=== PATIENT | male | born 1960 | race Caucasian/White ===

== ENCOUNTER → 2017-12-01 11:36 | Outpatient (CLI) | payer BC ==
[~2017-12-01] VITALS: Ht 188 cm; Wt 105.9 kg
--- NOTE | ~2017-12-01 | HEMODYNAMI ---
PATIENT:ANTONINA MARQUEZ MEDICAL RECORD: [id number] : 58 LOCATION:[facility] ADMISSION DATE: 12/01/17 Generatedon:12/01/201715:31 Patient name: ANTONINA MARQUEZ Patient #: [id number] S SN: [id number] : 1960 Date of study: 12/01/2017 Page: Of Hemodynamic Procedure Report Patient Data Patient Demographics Procedure consent was obtained First Name: ANTONINA Gender: Male Last Name: JIMMY : 1960 Middle Initial: S Age: 57 year(s) Patient #: [id number] Race: SSN: [id number] Additional ID: [id number] Contact details Address: [address] [place] [address] State: [place]: [facility] [place] code: [address] Admission Admission Data Admission Date: 12/01/2017 Admission Time: 11:36 Arrival Date: 12/01/2017 Arrival Time: 13:30 Admit Source: Other Insurance Payor: Private health insurance Height (in.): 74 BSA: 2.33 (m2) Height (cm.): 187.96 BMI: 30.3 (kg/m2) Weight (lbs.): 236 Weight (kg.): 107.05 Lab Results Lab Result Date: 12/01/2017 Lab Result Time: 0:00 Biochemistry Name Units Result Min Max BUN mg/dl 13 --(--*-)-- 7 18 Creatinine mg/dl 1 --(--*-)-- 0.6 1.3 CBC Name Units Result Min Max Hemoglobin g/dl 17.4 --(---*)-- 13.5 17.5 Procedure Procedure Types Cath Procedure Diagnostic Procedure [facility] w/Coronaries Sedation Charges Moderate Sedation up to 30 minutes Procedure Description Procedure Date Procedure Date: 12/01/2017 Procedure Start Time: 14:55 Procedure End Time: 15:25 Procedure Staff Name Function Pop Gannon MD Performing Physician Yolie JOHNSON Monitor Luisa Nielsen RT Scrub Daniel Travis RN Nurse Procedure Data Cath Procedure Fluoroscopy Diagnostic fluoroscopy Total fluoroscopy Time: 5.9 time: 5.9 min min Diagnostic fluoroscopy Total fluoroscopy dose: dose: 1004 mGy 1004 mGy Contrast Material Contrast Material Type Amount (ml) Isovue 300 72 Entry Location Entry Primary Successful Side Size Upsize Upsize Entry Closure Cuevas ccessful Closure Location (Fr) 1 (Fr) 2 (Fr) Remarks Device Remarks Radial Right 6 Fr Mechanical artery Short Compression Femoral Right 6 Fr Exoseal artery Short Estimated blood loss: 5 ml Diagnostic catheters Device Type Used For End Catheter Placement DIAGNOSTIC Adi 110cm Multi-vessel 5Fr catheter ([id number]) Angiography DIAGNOSTIC AR 1 MOD 5Fr Right Coronary catheter ([id number]) Angiography DIAGNOSTIC [place] 110cm 5 Left Coronary Fr catheter (117613) Angiography DIAGNOSTIC JL 4.0 5Fr Left Coronary catheter ([id number]) Angiography Procedure Complications No complications Procedure Medications Medication Administration Route Dosage Oxygen NC 2 l/min Heparin Flush Bag added to field 2 bags (1000units/500ml NS) 0.9% NaCl I.V. ml/hr Radial Cocktail added to field 1 syringe (Verapomil 2mg/Nitro 400mcg/Heparin 1500units) Fentanyl I.V. 50 mcg Versed I.V. 1 mg Fentanyl I.V. 50 mcg Versed I.V. 1 mg Fentanyl I.V. 50 mcg Radial Cocktail I.A. 1 syringe (Verapomil 2mg/Nitro 400mcg/Heparin 1500units) Fentanyl I.V. 50 mcg Fentanyl I.V. 50 mcg Hemodynamics Rest BSA: 2.33 (m2) HGB: 17.4 (g/dl) O2 Consumption: Estimated: 261.37 (ml/min) O2 Co nsumption indexed: Estimated:112.18 (ml/min/m) Heart Rate: 55 (bpm) Pressure Samples Time Site Value (mmHg) Purpose Heart Use Rate(bpm) 15:04 LV 137/-9,16 Snapshot 68 15:04 AO 122/73(96) Pullback 68 15:04 LV 142/4,19 Pullback 68 Gradients Valve Time Site 1 Site 2 Mean SEP/DFP Peak To Heart Use (mmHg) (sec/min) Peak Rate (mmHg) (bpm) Aortic 15:04 LV AO 26 6 20 68 142/4,19 122/73(96) Calculations Valve P-P Mean Valve Index Valve Source Name Gradient Area Flow (cm2) Aortic 20 26 20 26 Snapshots Pre Cath Intra NCS Post Cath Vital Signs Time Heart Resp SPO2 etCO2 NIBP (mmHg) Rhythm Pain Sedation Rate (ipm) (%) (mmHg) Status Level (bpm) 14:43:38 54 17 96 0 125/68(91) NSR 0 (11) 10(A) , No pain 14:47:46 55 16 96 0 111/71(85) NSR 0 (11) 10(A) , No pain 14:51:56 60 17 95 0 121/72(101) NSR 0 (11) 10(A) , No pain 14:56:08 60 17 94 21.3 115/65(83) NSR 0 (11) 9(A) , No pain 15:01:11 64 15 96 30.8 119/74(87) NSR 0 (11) 9(A) , No pain 15:06:02 63 16 93 0 116/62(82) NSR 0 (11) 9(A) , No pain 15:10:14 66 16 93 0 122/71(95) NSR 0 (11) 9(A) , No pain 15:15:07 59 16 93 0 119/64(92) NSR 0 (11) 9(A) , No pain 15:19:21 65 16 93 0 115/71(95) NSR 0 (11) 9(A) , No pain 15:24:18 66 17 94 0 120/82(101) NSR 0 (11) 9(A) , No pain Medications Time Medication Route Dose Verified Delivered Reason Notes Effectiveness by by 14:42:48 Oxygen NC 2 l/min Pop Travis RN physician 14:43:00 Heparin Flush added 2 bags Pop Sanchez used for Bag to Jagdeep Tarvis RN procedure (1000units/500ml field NS) 14:43:11 0.9% NaCl I.V. ml/hr Pop Travis RN physician 14:43:22 Radial Cocktail added 1 Pop Daniel used for (Verapomil to syringe Jagdeep Travis glass glazier 2mg/Nitro field 400mcg/Heparin 1500units) 14:51:59 Fentanyl I.V. 50 mcg Pop Daniel for sedation Jagdeep Travis RN 14:52:06 Versed I.V. 1 mg Pop Daniel for sedation Jagdeep Travis RN 14:56:14 Fentanyl I.V. 50 mcg Pop Daniel for sedation Jagdeep Travis RN 14:56:16 Versed I.V. 1 mg Pop Daniel for sedation Jagdeep Travis RN 14:59:41 Fentanyl I.V. 50 mcg Pop Daniel for sedation Jagdeep Travis RN 15:01:36 Radial Cocktail I.A. 1 Pop Pop for (Verapomil syringe Jagdeep Gannon MD vasodilation 2mg/Nitro 400mcg/Heparin 1500units) 15:04:30 Fentanyl I.V. 50 mcg Pop Daniel for sedation Jagdeep Travis RN 15:18:26 Fentanyl I.V. 50 mcg Pop Pop for sedation Jagdeep Gannon MD Procedure Log Time Note 14:28:19 Informed consent obtained and on chart 14:28:40 Luisa Nielsen RT(R) sent for patient. Start room use. 14:28:41 Time tracking: Regular hours 14:28:46 Plan of Care:Hemodynamics will remain stable., Cardiac rhythm will remain stable., Comfort level will be maintained., Respiratory function will remain adequate., Patient/ family verbilizes understanding of procedure., Procedure tolerated without complication., Recovers from procedure without complications.. 14:30:07 Patient Height : 74 inches 14:30:13 Patient Weight : 236 lbs 14:30:13 Admit Source: Other 14:30:22 Arrival Date: 12/01/2017 1:30:00 PM 14:30:32 Insurance Payor : Private health insurance 14:42:32 Vital chart was started 14:42:48 Oxygen 2 l/min NC was administered by Daniel Travis RN; Per physician; 14:43:00 Heparin Flush Bag (1000units/500ml NS) 2 bags added to field was administered by Daniel Travis RN; used for procedure; 14:43:11 0.9% NaCl ml/hr I.V. was administered by Daniel Travis RN; Per physician; 14:43:22 Radial Cocktail (Verapomil 2mg/Nitro 400mcg/Heparin 1500units) 1 syringe added to field was administered by Daniel Travis RN; used for procedure; 14:47:17 Patient received from Pre/Post Procedure Room to CCL 2 Alert and oriented. Tansferred to table in Supine position. 14:47:18 Warm blankets applied, and tima hugger turned on for patient comfort. 14:47:18 Correct patient and procedure confirmed by team. 14:47:19 ECG and BP/O2 sat monitors applied to patient. 14:47:24 Baseline sample Acquired. 14:47:30 Rhythm: sinus rhythm 14:47:32 Full Disclosure recording started 14:47:37 H&P Date Dictated: 12/01/2017 Within 30 days and on chart., H&P Addendum completed by physician on day of procedure. (MUST COMPLETE FOR ALL OUTPATIENTS). 14:47:38 Pre-procedure instructions explained to patient. 14:47:38 Pre-op teaching completed and patient verbalized understanding. 14:47:40 Family in waiting room. 14:47:41 Patient NPO since Midnight. 14:47:44 Is the patient allergic to Iodine/contrast media? No. 14:47:45 Was the patient premedicated? No 14:47:48 Is patient on blood thinner?No 14:47:49 Patient diabetic? No. 14:47:51 Previous problem with sedation/anesthesia? No ? 14:47:53 Snore? No 14:47:54 Sleep apnea? No 14:47:55 Deviated septum? No 14:47:56 Opens mouth fully? Yes 14:47:57 Sticks out tongue? Yes 14:48:00 Airway obstruction? No ? 14:48:03 Dentures? No ? 14:48:28 Pre procedure: right dorsailis pedis pulse 2+ Normal; easily identifiable; not easily obliterated 14:48:31 Pre procedure: left dorsailis pedis pulse 2+ Normal; easily identifiable; not easily obliterated 14:48:33 Patient pain scale 0/10 ?. 14:48:43 IV patent on arrival in left forearm with 0.9% NaCl at [facility]. 14:48:45 Lab results completed and on chart. 14:48:50 Right Radial & Right Groin area was prepped with chlora-prep and draped in sterile fashion 14:48:50 Alarms reviewed by R. N. 14:48:51 Sharps counted by scrub and verified by R.N. 14:49:57 Lab Result : Hemoglobin 17.4 g/dl 14:49:57 Lab Result : Creatinine 1 mg/dl 14:49:57 Lab Result : BUN 13 mg/dl 14:51:23 Physician arrived 14:51:23 --------ALL STOP TIME OUT------ 14:51:25 Final Timeout: patient, procedure, and site verified with staff and physician. All members of the team are in agreement. 14:51:27 Right Radial & Right Groin site verified by team. 14:51:30 Physical assessment completed. ASA score P 2 - A patient with mild systemic disease as per Pop Gannon MD. 14:51:34 Sedation plan: IV Moderate Sedation Medication:Versed, Fentanyl 14:51:37 Use device set Radial Dx or PCI 14:51:38 ACIST Syringe (23004) opened to sterile field. 14:51:39 Medline Cath Pack ([id number]) opened to sterile field. 14:51:39 Bag Decanter (2002S) opened to sterile field. 14:51:40 DIAGNOSTIC WIRE .035 260cm J wire (405122) opened to sterile field. 14:51:41 ACIST Hand Control (10170) opened to sterile field. 14:51:41 ACIST Manifold (92968) opened to sterile field. 14:51:42 Tegaderm 4 x 4 (1626W) opened to sterile field. 14:51:43 MBrace Wrist Support (500978057) opened to sterile field. 14:51:59 Fentanyl 50 mcg I.V. was administered by Daniel Travis RN; for sedation; 14:52:06 Versed 1 mg I.V. was administered by Daniel Travis RN; for sedation; 14:52:06 NEEDLE Cook 21G 4cm Radial (C25155) opened to sterile field. 14:55:43 Procedure started. 14:55:46 Local anesthetic to right radial artery with Lidocaine 2% by Pop Gannon MD.INITIAL ACCESS ONLY 14:56:14 Fentanyl 50 mcg I.V. was administered by Daniel Travis RN; for sedation; 14:56:16 Versed 1 mg I.V. was administered by Daniel Travis RN; for sedation; 14:56:21 SHEATH 6Fr Prelude Radial ([id number]) opened to sterile field. 14:59:41 Fentanyl 50 mcg I.V. was administered by Daniel Travis RN; for sedation; 15:01:23 A 6 Fr Short sheath was inserted into the Right Radial artery 15:01:36 Radial Cocktail (Verapomil 2mg/Nitro 400mcg/Heparin 1500units) 1 syringe I.A. was administered by Pop Gannon MD; for vasodilation; 15:03:05 A DIAGNOSTIC Adi 110cm 5Fr catheter (759062) was advanced over the wire and used for Multi-vessel Angiography. 15:04:21 LV hemodynamics recorded. 15:04:22 LV gram done using ALMEIDA 15:04:29 Injector settings: Ml/sec: 5, Volume: 15, 15:04:30 Fentanyl 50 mcg I.V. was administered by Daniel Travis RN; for sedation; 15:04:37 EF : 50 % 15:06:03 Catheter removed. 15:06:53 A DIAGNOSTIC AR 1 MOD 5Fr catheter (233553S) was advanced over the wire and used for Right Coronary Angiography. 15:07:44 RCA angiography performed. 15:07:48 Injector settings: Ml/sec: 3, Volume: 69, 15:08:23 Catheter removed. 15:09:06 A DIAGNOSTIC [place] 110cm 5 Fr catheter (657597) was advanced over the wire and used for Left Coronary Angiography. 15:12:29 Guide Catheter removed. unable to cannulate vessel. 15:12:49 GUIDE 6FR XBLAD 4.0 catheter (08413168) opened to sterile field. 15:14:26 Guide Catheter removed. unable to cannulate vessel. 15:14:42 Local anesthetic to right femoral artery with Lidocaine 2% by Pop Gannon MD.ADDITIONAL ACCESS 15:14:56 A 6 Fr Short sheath was inserted into the Right Femoral artery 15:17:41 A DIAGNOSTIC JL 4.0 5Fr catheter (541071B) was advanced over the wire and used for Left Coronary Angiography. 15:18:26 Fentanyl 50 mcg I.V. was administered by Pop Gannon MD; for sedation; 15:20:48 LCA angiography performed. 15:20:54 Injector settings: Ml/sec: 3, Volume: 6, 15:20:57 Catheter removed. 15:21:26 EXOSEAL 5Fr (EX500) opened to sterile field. 15:22:46 Sheath removed intact; hemostasis achieved with Mechanical Compression to the Right Radial artery. 15:22:58 Sheath removed intact; hemostasis achieved with Exoseal to the Right Femoral artery. 15:23:00 Procedure ended.(Physican Out) 15:23:42 Fluoroscopy time 05.90 minutes. 15:23:49 Fluoroscopy dose: 1004 mGy 15:23:49 Flurop Dose total: 1004 15:23:59 Contrast amount:Isovue 300 72ml. 15:24:01 Sharps counted by scrub and verified by R.N. 15:24:04 TR band inflated with 10cc of air. 15:24:13 Post-op/insertion site Right Femoral artery dressed using a 4 x 4 and Tegaderm. 15:24:19 Post right radial artery:stable 15:24:22 Post Procedure Pulses reassessed and unchanged 15:24:25 Post procedure rhythm: unchanged. 15:24:37 Estimated blood loss: 5 ml 15:24:41 Post procedure instruction explained to patient.Patient verbalizes understanding. 15:24:46 Patient needs reinforcement of post procedure teaching. 15:25:21 Procedure type changed to Cath procedure, Diagnostic procedure, LHC, LHC w/Coronaries, Sedation Charges, Moderate Sedation up to 30 minutes 15:25:22 Procedure and supply charges have been captured, reviewed, submitted and are correct. 15:25:30 Procedure Complication : No complications 15:25:33 Vital chart was stopped 15:25:34 See physician's report for complete and final results. 15:25:41 Report given to Pre/Post Procedure Room. 15:25:46 Patient transfered to Pre/Post Procedure Room with Stretcher. 15:25:51 Procedure ended. 15:25:51 Full Disclosure recording stopped 15:25:57 End room use (Document Last) Device Usage Item Name Manufacture Quantity Catalog Number Hospital Part Current M inimal Lot# / Charge Number Stock Stock Serial# Code ACIST Syringe Acist 1 03746 547263 652802 398280 2 0 (00807) [employer] Medline Cath Cardinal 1 [id number] 863427 05881 746954 5 Pack Health ([id number]) Bag Decanter Microtek 1 2001S 584398 86865 012761 5 (2001S) [employer] DIAGNOSTIC WIRE [facility] [place] 1 280075 338727 439820 469288 3 0 .035 260cm J wire (859351) ACIST Hand Acist 1 05805 224817 032778 844115 5 Control (57054) [employer] Inc ACIST Manifold Acist 1 50004 774474 906648 188242 5 (72420) [employer] Inc Tegaderm 4 x 4 3M 1 1626W 423611 218148 179620 5 (1626W) MBrace Wrist Advanced 1 140-0250-00 342327 87546 878182 5 Support Vascular (205875762) Dynamics NEEDLE Cook 21G Cook Medical 1 P79882 006884 230725 723909 5 4cm Radial (C70916) SHEATH 6Fr Merit 1 [id number] 956348 489225 778258 5 Prelude Radial Medical ([id number]) DIAGNOSTIC Terumo 1 40-5023 235694 802209 875118 5 Adi 110cm 5Fr catheter (468691) DIAGNOSTIC AR 1 Cardinal 1 [id number] 585993 841484 444319 1 5 MOD 5Fr Health catheter (036286O) DIAGNOSTIC Terumo 1 40-5013 332889 944476 416101 5 [place] 110cm 5 Fr catheter (527178) GUIDE 6FR XBLAD Cardinal 1 [id number] 743532 366148 149692 3 4.0 catheter Health (70070607) DIAGNOSTIC JL Cardinal 1 [id number] 166611 907280 664050 1 0 4.0 5Fr Health catheter (470786X) EXOSEAL 5Fr Cardinal 1 EX500 252232 419222 977572 1 0 (EX500) Health Signature Audit [place] Stage Time Signature Unsigned Intra-Procedure 12/01/2017 Yolie Stubbs 3:31:50 PM RT(R) Signatures Monitor : Yolie Stubbs RT Signature : Date : Time : [facility] [address] [place] [id number]
[~2017-12-01 11:36] MED LIST: ACETAMINOPHEN325 MG PO; ADVIL100 M1 PO; CARAFATE1 G/10 ML PO; FAMOTIDINE10 MG PO; PROTONIX40 MG PO; REVATIO20 MG PO; VITAMIN D5000 UNIT PO
[2017-12-01 12:04] VITALS: BP 141/83; Ht 188 cm; Wt 105.9 kg
[2017-12-01 12:19] LABS: BASOPHILS 0.6 % (0-2); EOSINOPHILS 1.9 % (0-7); HEMATOCRIT 49.2 % (42.0-54.0); HEMOGLOBIN 17.4 g/dL (13.5-17.5); LYMPHOCYTES 34.1 % (15-50); MCH 30.7 pg (26.0-34.0); MCHC 35.4 g/dL (31.0-37.0); MCV 86.9 fL (80.0-100.0); MEAN PLATELET VOLUME 9.7 fL (7.4-10.4); MONOCYTES 7.3 % (2-11); NEUTROPHILS 55.1 % (40-80); PLATELET COUNT 212 10x3/uL (130-400); RBC 5.66 10x6/uL (4.20-6.10); RDW 12.5 % (11.5-14.5); WBC 6.9 10x3/uL (4.8-10.8)
[2017-12-01 12:27] LABS: CALC OSMOLALITY 275 mosm/kg (275-300); CALCIUM 8.6 mg/dL (8.5-10.1); CARBON DIOXIDE 23.9 mmol/L (21.0-32.0); CHLORIDE - SERUM 104 mmol/L (98-107); GLUCOSE 98 mg/dL (74-106); SODIUM 138 mmol/L (136-145); UREA NITROGEN 13 mg/dL (7-18); eGFR NON AFRICAN AMERICAN 81 mL/min (90-120)
== END | disposition home or self-care (01) ==
LOC: D.CATH 11:36
PROVIDERS: Internal Medicine Cardiovascular Disease
DX: I20.9 Angina pectoris, unspecified (principal); R94.30 Abnormal result of cardiovascular function study, unspecified; Z01.812 Encounter for preprocedural laboratory examination; Z82.49 Family history of ischemic heart disease and other diseases of the circulatory system; R94.31 Abnormal electrocardiogram [ECG] [EKG]; R07.9 Chest pain, unspecified